=== PATIENT | male | born 1950 | race Caucasian/White ===

== ENCOUNTER → 2023-05-10 06:48 | Outpatient (REF) | payer MEDICARE, SELFPAY | LOC: MRI 06:48 | PROVIDERS: ATTENDING PHYSICIAN Specialist; FAMILY PHYSICIAN Family Medicine | DX: G93.41 Metabolic encephalopathy (principal) | CPT/HCPCS: 70551 ==

== ENCOUNTER 2023-11-30 06:32 | Day surgery (SDC) | payer MEDICARE, SELFPAY ==
[2023-11-30 09:07] VITALS: BP 142/78
[2023-11-30 09:28] VITALS: BMI 23.2
[2023-11-30 09:29] VITALS: BMI 23.2
[2023-11-30 11:30] VITALS: BP 105/78
[2023-11-30 11:45] VITALS: BP 115/74
[2023-11-30 12:00] VITALS: BP 121/71
== END 2023-11-30 13:00 | disposition home or self-care (01) ==
LOC: SDS 06:32
PROVIDERS: ATTENDING PHYSICIAN Internal Medicine Gastroenterology
DX: K21.9 Gastro-esophageal reflux disease without esophagitis (principal); K31.89 Other diseases of stomach and duodenum; K31.7 Polyp of stomach and duodenum; Z79.01 Long term (current) use of anticoagulants
CPT/HCPCS: 43239; 88305

== ENCOUNTER → 2023-12-06 11:42 | Outpatient (REF) | payer MEDICARE, SELFPAY | LOC: DHCBC/DCA 11:42 | PROVIDERS: ATTENDING PHYSICIAN Internal Medicine; FAMILY PHYSICIAN Family Medicine | DX: I25.810 Atherosclerosis of coronary artery bypass graft(s) without angina pectoris (principal); Z95.2 Presence of prosthetic heart valve; I49.3 Ventricular premature depolarization; I48.0 Paroxysmal atrial fibrillation | CPT/HCPCS: 78452; 93017; A9500; J2785 ==

== ENCOUNTER → 2023-12-11 08:07 | Outpatient (REF) | payer MEDICARE, SELFPAY | LOC: RCS 08:07 | PROVIDERS: ATTENDING PHYSICIAN Internal Medicine; FAMILY PHYSICIAN Family Medicine | DX: I25.810 Atherosclerosis of coronary artery bypass graft(s) without angina pectoris (principal); Z95.2 Presence of prosthetic heart valve | CPT/HCPCS: 93225; 93226 ==

== ENCOUNTER → 2023-12-19 10:03 | Outpatient (REF) | payer MEDICARE, SELFPAY | LOC: RCS 10:03 | PROVIDERS: ATTENDING PHYSICIAN Internal Medicine; FAMILY PHYSICIAN Family Medicine | DX: I25.810 Atherosclerosis of coronary artery bypass graft(s) without angina pectoris (principal); Z95.2 Presence of prosthetic heart valve; I49.3 Ventricular premature depolarization; I48.0 Paroxysmal atrial fibrillation | CPT/HCPCS: 93306 ==